=== PATIENT | female | born 1945 | race Caucasian/White ===

== ENCOUNTER → 2016-11-20 | Outpatient (CLI) | payer MEDICARE, BC ==
[~2016-11-20] MED LIST: AMBI5TAB; ASPI325T; BABY81CH; BUPROPION XL; CALCIUM/VITAMIN D; CHONDROITIN SULFATE; DEPA500T2; GLUCOSAMINE; LIPI10TA; LORATADINE; NASONEX; OMEGA 3; SYNT88TA
--- NOTE | 2016-11-20 15:01 | REPMRS ---
Patient History The patient states she had a clinical breast exam in 07/2016. Patient is postmenopausal. No known family history of cancer. Benign excisional biopsy of both breasts. Took estrogen for 10 years. Digital Woman Screen Mammo: November 20, 2016 - Exam #: [id number] Bilateral CC and MLO view(s) were taken. Technologist: Salome Lange, Technologist Prior study comparison: October 15, 2015, bilateral digital mammo screening bilat, performed at [facility]. October 02, 2014, bilateral digital mammo screening bilat, performed at [facility]. FINDINGS: There are scattered fibroglandular densities. There has been no change in the appearance of the mammogram from the prior studies. There is a mild amount of residual fibroglandular tissue which is fairly symmetric. There is no interval development of dominant mass, architectural distortion, or clustered microcalcification suggestive of malignancy. ASSESSMENT: BI-RADS/ACR category 1 mammogram. Negative. Recommendation Routine screening mammogram in 1 year (for women over age 40). This mammogram was interpreted with the aid of an FDA-approved computer-aided dectection system. Electronically Signed By: Krystian Major MD 11/20/16 [id number]
--- NOTE | 2016-11-22 11:09 | DEXA ---
AP SPINE L1 - L4 1.223 0.2 2.0 LT FEMUR TOTAL 0.832 -1.4 0.3 RT FEMUR TOTAL 0.852 -1.2 0.4 TOTAL BODY TOTAL OTHER DUAL FEMUR FRAX* ASSESSMENT Risk factors: Not performed. 10 year probability of fracture Major osteoporotic fracture % Hip fracture % COMMENTS: Normal bone densitometry of the spine. There is low bone density of the hips. The increased density of the spine does represent a significant change. The increased density of the left hip does not represent a significant change. The decreased density of the right hip does not represent significant change. The density of the spine has increased 18.4% since the initial exam on 1998. The spine density has increased 4.3% since the most recent exam on 01/02/2013. The density of the left hip has decreased 5.0% since the initial exam on 1998. The density of the left hip has increased 0.8% since the most recent exam on 05/2012. The density of the right hip has decreased 4.4% since the initial exam on 1998. The density of the right hip has decreased 1.4% since the most recent exam on . FOLLOW-UP: Recommendation for the next bone density exam: 2 years. ANNEMARIE
== END ==
LOC: M WHC 13:53
PROVIDERS: ATTEND Internal Medicine
DX: Z12.31 Encounter for screening mammogram for malignant neoplasm of breast (principal); M81.8 Other osteoporosis without current pathological fracture; Z78.0 Asymptomatic menopausal state
CPT/HCPCS: 77080; G0202

== ENCOUNTER → 2018-08-12 | Outpatient (REF) | payer MEDICARE ==
[2018-08-13 13:11] LABS: PERCENT SATURATION 10.4 % (13.2-45.0)
== END ==
LOC: M LAB REF 12:27
PROVIDERS: ATTEND Internal Medicine
DX: D50.9 Iron deficiency anemia, unspecified (principal)

== ENCOUNTER → 2018-10-16 | Outpatient (CLI) | payer MEDICARE, BC | LOC: M LAB 14:46 | PROVIDERS: ATTEND Internal Medicine Gastroenterology | DX: D50.9 Iron deficiency anemia, unspecified (principal) ==

== ENCOUNTER 2018-12-10 09:22 | Day surgery (SDC) | payer MEDICARE, BC, OTHER ==
[~2018-12-10] VITALS: Ht 152.4 cm; Wt 68.4 kg
[~2018-12-10 09:22] MED LIST changes: +ASPI81TA85 PO; +BENA25CA4 PO; +BUPR150T3 PO; +CALC600T66 PO; +CITA40TA4 PO; +CVS50CAP PO; +EUCR2OIN; +FERR324T2 PO; +LEVO75TA4 PO; +LISI10TA4 PO; +MELA10CA2 PO; +NS 1,000 ML IV ONE; +PANT40TA3 PO; +SIMV20TA2 PO
[2018-12-10] MEDS ORDERED: LIDOCAINE 2% INJ 100 MG/5 ML SDV (FOR ANES.) As Ordered ONE (11:32)
[2018-12-10] MEDS ORDERED: PROPOFOL 200 MG/20 ML VIAL As Ordered ONE ×2 (11:40→12:17)
--- NOTE | 2018-12-10 11:45 | ROOR ---
Patient Name: Rekha Kendrick Procedure Date: 12/10/2018 11:30 AM Date of : 1945 Age: 73 Room: [facility] Gender: Female Note Status: Finalized Procedure: Upper GI endoscopy Indications: Iron deficiency anemia Providers: Jordan WILEY MD Referring MD: Stephenie BENDER MD Requesting Provider: Medicines: Monitored Anesthesia Care Complications: No immediate complications. Procedure: Pre-Anesthesia Assessment: - The heart rate, respiratory rate, oxygen saturations, blood pressure, adequacy of pulmonary ventilation, and response to care were monitored throughout the procedure. The Endoscope was introduced through the mouth, and advanced to the third part of duodenum. The upper GI endoscopy was accomplished without difficulty. The patient tolerated the procedure well. Findings: The esophagus was normal. The stomach was normal. The examined duodenum was normal. Biopsies for histology were taken with a cold forceps in the second portion of the duodenum and in the third portion of the duodenum for evaluation of celiac disease. Impression: - Normal esophagus. - Normal stomach. - Normal examined duodenum. - Biopsies were taken with a cold forceps for evaluation of celiac disease. Recommendation: - Perform a colonoscopy today. Jordan Wiley MD Jordan WILEY MD 12/10/2018 11:45:14 AM Electronically signed by Jordan WILEY MD Number of Addenda: 0 Note Initiated On: 12/10/2018 11:30 AM Estimated Blood Loss: Estimated blood loss: none.
--- NOTE | 2018-12-10 12:22 | ROOR ---
Patient Name: Rekha Kendrick Procedure Date: 12/10/2018 11:32 AM Date of : 1945 Age: 73 Room: [facility] Gender: Female Note Status: Finalized Procedure: Colonoscopy Indications: Iron deficiency anemia Providers: Jordan WILEY MD Referring MD: Stephenie BENDER MD Requesting Provider: Medicines: Monitored Anesthesia Care Complications: No immediate complications. Procedure: Pre-Anesthesia Assessment: - The heart rate, respiratory rate, oxygen saturations, blood pressure, adequacy of pulmonary ventilation, and response to care were monitored throughout the procedure. The Colonoscope was introduced through the anus and advanced to 8 cm into the ileum. The Colonoscope was introduced through the anus and advanced to 8 cm into the ileum. The colonoscopy was somewhat difficult due to a acutely angulated sigmoid loop which i was not able to safely traverse with standard pediatric colonoscope. Successful completion of the procedure was aided by withdrawing the scope and replacing with the pediatric colonoscope (Pedi-Pedi scope). The patient tolerated the procedure well. The quality of the bowel preparation was good. Findings: The perianal and digital rectal examinations were normal. Multiple medium-mouthed diverticula were found in the sigmoid colon. Small Internal Hemorrhoids. The exam was otherwise without abnormality on direct and retroflexion views. Impression: - Moderate diverticulosis in the sigmoid colon. - Small Internal Hemorrhoids. - The examination was otherwise normal on direct and retroflexion views. - No specimens collected. Recommendation: - Continue present medications. Jordan Wiley MD Jordan WILEY MD 12/10/2018 12:21:56 PM Electronically signed by Jordan WILEY MD Number of Addenda: 0 Note Initiated On: 12/10/2018 11:32 AM Estimated Blood Loss: Estimated blood loss: none.
[2018-12-10 12:45] VITALS: BP 126/58
== END 2018-12-10 12:56 | disposition home or self-care (01) ==
LOC: M OPP 09:22
PROVIDERS: ATTEND Internal Medicine Gastroenterology
DX: K57.30 Diverticulosis of large intestine without perforation or abscess without bleeding (principal); K64.8 Other hemorrhoids; D50.9 Iron deficiency anemia, unspecified; Z79.82 Long term (current) use of aspirin; Z79.899 Other long term (current) drug therapy; Z87.891 Personal history of nicotine dependence

== ENCOUNTER 2019-08-02 15:04 | Emergency (ER) | payer MEDICARE, BC, OTHER ==
[~2019-08-02 15:04] MED LIST changes: -NS 1,000 ML IV ONE; -SIMV20TA2 PO; +SIMV20TA22 PO
[2019-08-02] MEDS ORDERED: NS 1,000 ML IV ONE (15:30)
[2019-08-02] MEDS ORDERED: ASPI-264 PO (15:32)
[2019-08-02 15:56] LABS: BASO # 0.1 10^3/uL (0.0-0.2); BASO % 0.5 % (0.0-1.0); EOS # 0.4 10^3/uL (0.0-0.5); EOS % 2.7 % (0.0-3.0); HEMATOCRIT 41.7 % (36.0-47.0); HEMOGLOBIN 13.2 g/dl (12.0-15.5); LYMPH # 1.4 10^3/uL (1.5-5.0); LYMPH % 9.9 % (24.0-44.0); MEAN CORPUSCULAR HEMOGLOBIN 29.5 pg (27.0-33.0); MEAN CORPUSCULAR HGB CONC 31.7 g/dl (32.0-36.5); MEAN CORPUSCULAR VOLUME 93.3 fl (80.0-96.0); MONO % 7.3 % (0.0-5.0); NEUTROPHILS # 11.3 10^3/uL (1.5-8.5); PLATELET COUNT, AUTOMATED 370 10^3/uL (150-450); RED BLOOD COUNT 4.47 10^6/uL (4.00-5.40); WHITE BLOOD COUNT 14.3 10^3/uL (4.0-10.0)
[2019-08-02] MEDS ORDERED: ISOVUE-370 76% 100ML VIAL As Ordered ONE (16:05)
[2019-08-02 16:27] LABS: ALBUMIN 3.9 GM/DL (3.2-5.2); ALT/SGPT 27 U/L (12-78); BILIRUBIN,DIRECT 0.2 MG/DL (0.0-0.2); BILIRUBIN,TOTAL 0.4 MG/DL (0.2-1.0); CK-MB VALUE MASS < 1.0 NG/ML (<3.6); CPK CREATINE PHOSPHOKINASE 60 U/L (26-192); LIPASE 130 U/L (73-393); MB/CK RELATIVE INDEX 1.67 (< OR =4); TOTAL PROTEIN 7.1 GM/DL (6.4-8.2); TROPONIN I < 0.02 NG/ML (< 0.10)
--- NOTE | 2019-08-02 16:27 | REP ---
Clinical: Chest pain and weakness . Comparison: 09/04/2008 . Findings: The mediastinum and cardiac silhouette are stable and within normal limits for portable technique. The lung oliver are clear without acute consolidation, effusion, or pneumothorax. Skeletal structures are intact. Impression: No acute cardiopulmonary process appreciated. Electronically Signed by Julio C Ashraf MD 08/02/2019 04:18 P
--- NOTE | 2019-08-02 16:31 | REP ---
Clinical: Lower abdominal pain. Technique: Axial contrast enhanced images from the lung bases to the pubic symphysis using 100 ml Isovue 370 intravenous contrast material with coronal and sagittal re-formations. Comparison: None. Findings: Lung bases are clear. Visualized heart and pericardium normal. Small hiatal hernia noted. Liver, spleen, pancreas, gallbladder, bilateral adrenal glands and kidneys are normal. The colon is mildly distended and diffusely fluid-filled along with mildly prominent enhancing partially fluid-filled small bowel raising the possibility of underlying enterocolitis. No obstruction or inflammatory changes are otherwise noted. No free air. No ascites or drainable collection/abscess. Pelvis demonstrates normal bladder and evidence of prior hysterectomy. No adenopathy. Abdominal aorta without aneurysm or dissection. Musculoskeletal structures demonstrate age-related degenerative changes. Impression: 1. Possible mild enterocolitis. 2. Small hiatal hernia. Electronically Signed by Julio C Ashraf MD 08/02/2019 04:23 P
[2019-08-02] MEDS ORDERED: ONDANSETRON 4MG/2ML VIAL IV ONE (17:30)
[2019-08-02] MEDS ORDERED: CIPR-249 PO (18:07)
[2019-08-02] MEDS ORDERED: FLAG500T PO (18:08)
[2019-08-02] MEDS ORDERED: ZOFR4TAB16 PO (18:08)
[2019-08-02] MEDS ORDERED: metroNIDAZOLE (FLAGYL) 500 MG TAB PO ONE (18:15)
[2019-08-02] MEDS ORDERED: CIPROFLOXACIN 500MG TABLET PO ONE (18:15)
[2019-08-02 19:03] VITALS: BP 144/71
--- NOTE | 2019-08-02 19:39 | ECGEPIP ---
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
== END 2019-08-02 19:11 | disposition home or self-care (01) ==
LOC: EDBD 15:04 → M ED 15:04
DX: R10.9 Unspecified abdominal pain (principal); K51.918 Ulcerative colitis, unspecified with other complication; R19.7 Diarrhea, unspecified; R11.10 Vomiting, unspecified
CPT/HCPCS: 36415; 71045; 74177; 80047; 80076; 81001; 82550; 82553; 83605; 83690; 84484; 85025; 87040; 87086; 93005; 93041; 99285; J2405; Q9967

== ENCOUNTER → 2019-09-08 | Outpatient (REF) | payer MEDICARE, OTHER ==
[~2019-09-08] MED LIST changes: +ASPI-264 PO; +CIPR-249 PO; +FLAG500T PO; +ZOFR4TAB16 PO
== END ==
LOC: M LAB REF 12:58
PROVIDERS: ATTEND Dermatology
DX: C44.311 Basal cell carcinoma of skin of nose (principal)

== ENCOUNTER 2019-10-08 06:42 | Emergency (ER) | payer MEDICARE, BC, OTHER ==
[~2019-10-08] VITALS: Ht 152.4 cm; Wt 68.2 kg
[2019-10-08] MEDS ORDERED: NS 1,000 ML IV ONE (07:30)
[2019-10-08] MEDS ORDERED: ONDANSETRON 4MG/2ML VIAL IV ONE (07:45)
[2019-10-08 07:47] LABS: BASO # 0.1 10^3/uL (0.0-0.2); BASO % 0.3 % (0.0-1.0); EOS # 0.2 10^3/uL (0.0-0.5); EOS % 0.9 % (0.0-3.0); HEMATOCRIT 43.9 % (36.0-47.0); HEMOGLOBIN 13.9 g/dl (12.0-15.5); LYMPH # 1.4 10^3/uL (1.5-5.0); LYMPH % 7.2 % (24.0-44.0); MEAN CORPUSCULAR HEMOGLOBIN 29.5 pg (27.0-33.0); MEAN CORPUSCULAR HGB CONC 31.7 g/dl (32.0-36.5); MEAN CORPUSCULAR VOLUME 93.2 fl (80.0-96.0); MONO # 1.7 10^3/uL (0.0-0.8); MONO % 8.9 % (0.0-5.0); NEUTROPHILS # 15.4 10^3/uL (1.5-8.5); NEUTROPHILS % 82.2 % (36.0-66.0); PLATELET COUNT, AUTOMATED 389 10^3/uL (150-450); RED BLOOD COUNT 4.71 10^6/uL (4.00-5.40); WHITE BLOOD COUNT 18.8 10^3/uL (4.0-10.0)
[2019-10-08 08:18] LABS: ALBUMIN 3.9 GM/DL (3.2-5.2); BILIRUBIN,DIRECT 0.1 MG/DL (0.0-0.2); BILIRUBIN,TOTAL 0.5 MG/DL (0.2-1.0)
[2019-10-08] MEDS ORDERED: ISOVUE-370 76% 100ML VIAL As Ordered ONE (08:45)
[2019-10-08 10:00] VITALS: BP 128/62
[2019-10-08] MEDS ORDERED: FLAG500T PO (10:09)
[2019-10-08] MEDS ORDERED: CIPR-249 PO (10:09)
--- NOTE | 2019-10-08 10:31 | REP ---
CT ABDOMEN AND PELVIS WITH IV CONTRAST: TECHNIQUE: Axial contrast-enhanced images from the lung bases to the pubic symphysis using 100 mL Isovue-370 intravenous contrast material with multiplanar reformations. COMPARISON: 08/02/2019 The visualized lung bases demonstrate no acute infiltrate. Liver demonstrates a small cyst in the superior left lobe with no other significant abnormality. The gallbladder is grossly unremarkable. Spleen is normal in size with no intrinsic abnormality. The adrenal glands are normal. No pancreatic mass is seen. The right kidney appears normal. The left kidney demonstrates a subcentimeter cyst in the lower pole. There is no hydronephrosis. There is atherosclerotic calcification of the abdominal aorta without aneurysm. There is no adenopathy, free air or free fluid. Diffuse thickening is noted over the colon with relative sparring of the inferior right colon. Findings are consistent with diffuse colitis. No pelvic mass is seen. The patient has had a hysterectomy. Urinary bladder is mildly distended and grossly unremarkable. There are degenerative changes of the spine with anterolisthesis of L5 on S1. This is unchanged. There is a small hiatal hernia. IMPRESSION: Diffuse colitis with relative sparring of the inferior right colon. No free air or free fluid. Electronically Signed by Krystian Major MD 10/09/2019 09:19 A
--- NOTE | 2019-10-09 00:15 | ECGEPIP ---
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
== END 2019-10-08 10:28 | disposition home or self-care (01) ==
LOC: M ED 06:42
DX: K52.9 Noninfective gastroenteritis and colitis, unspecified (principal); I10 Essential (primary) hypertension; D64.9 Anemia, unspecified; Z87.891 Personal history of nicotine dependence; Z79.899 Other long term (current) drug therapy
CPT/HCPCS: 74177; 80047; 80076; 83690; 85025; 87507; 93005; 96361; 96374; 99284; J2405; Q9967

== ENCOUNTER → 2020-01-04 | Outpatient (CLI) | payer MEDICARE, BC, OTHER ==
[~2020-01-04] MED LIST changes: -ASPI81TA85 PO; +ASPI81TA86 PO; +NORT25CA2; +PANT40TA29 PO; -PANT40TA3 PO
== END ==
LOC: M LABSMTC 09:52
PROVIDERS: ATTEND Anesthesiology
DX: Z01.812 Encounter for preprocedural laboratory examination (principal); Z20.828 Contact with and (suspected) exposure to other viral communicable diseases
CPT/HCPCS: C9803; U0003

== ENCOUNTER 2020-01-09 07:56 | Day surgery (SDC) | payer MEDICARE, BC, OTHER ==
[~2020-01-09] VITALS: Ht 152.4 cm; Wt 70.3 kg
[~2020-01-09 07:56] MED LIST changes: +NS 1,000 ML IV ONE
[2020-01-09] MEDS ORDERED: propofoL 500 MG/50 ML VIAL As Ordered ONE (08:15)
[2020-01-09] MEDS ORDERED: PHENYLephrine HCL 500 MCG/5 ML (100MCG/ML) SYRINGE (J2370) As Ordered ONE (08:49)
[2020-01-09] MEDS ORDERED: LIDOCAINE 2% 100MG/5ML SDV (FOR ANES.) As Ordered ONE (08:49)
--- NOTE | 2020-01-09 09:13 | ROOR ---
Patient Name: Rekha Kendrick Procedure Date: 01/09/2020 8:26 AM Date of : 1945 Age: 74 Room: [facility] Gender: Female Note Status: Finalized Procedure: Colonoscopy Indications: Abnormal CT of the GI tract, Follow-up of suspected episode ischemic colitis. constipation/fecal impaction Providers: Jordan WILEY MD Referring MD: Stephenie BENDER MD Requesting Provider: Medicines: Monitored Anesthesia Care Complications: No immediate complications. Procedure: Pre-Anesthesia Assessment: - The heart rate, respiratory rate, oxygen saturations, blood pressure, adequacy of pulmonary ventilation, and response to care were monitored throughout the procedure. The Colonoscope was introduced through the anus and advanced to the terminal ileum, with identification of the appendiceal orifice and IC valve. The colonoscopy was somewhat difficult due to Angulated sigmoid. Successful completion of the procedure was aided by withdrawing the scope and replacing with the 'babyscope' and lavage. The patient tolerated the procedure well. The quality of the bowel preparation was unsatisfactory. Findings: The perianal and digital rectal examinations were normal. Multiple diverticula were found in the sigmoid colon. There was evidence of diverticular spasm. Internal hemorrhoids were found during retroflexion. The hemorrhoids were moderate. The exam was otherwise without abnormality on direct and retroflexion views. Impression: - Preparation of the colon was unsatisfactory. - Moderate diverticulosis in the sigmoid colon. There was evidence of diverticular spasm. - Internal hemorrhoids. - The examination was otherwise normal on direct and retroflexion views. (Colitis is not seen) - No specimens collected. Recommendation: - Repeat colonoscopy in 1 year because the bowel preparation was suboptimal. - Miralax 1 capful (17 grams) in 8 ounces of water PO daily indefinitely. - Use fiber, for example Citrucel, Fibercon, Konsyl or Metamucil. Jordan Wiley MD Jordan WILEY MD 01/09/2020 9:13:12 AM Electronically signed by Jordan WILEY MD Number of Addenda: 0 Note Initiated On: 01/09/2020 8:26 AM Estimated Blood Loss: Estimated blood loss: none.
[2020-01-09 09:28] VITALS: BP 106/59
== END 2020-01-09 09:29 | disposition home or self-care (01) ==
LOC: M OPP 07:56
PROVIDERS: ATTEND Internal Medicine Gastroenterology
DX: K55.9 Vascular disorder of intestine, unspecified (principal); K64.8 Other hemorrhoids; K57.30 Diverticulosis of large intestine without perforation or abscess without bleeding; I10 Essential (primary) hypertension; R93.3 Abnormal findings on diagnostic imaging of other parts of digestive tract; Z79.82 Long term (current) use of aspirin; Z79.899 Other long term (current) drug therapy
CPT/HCPCS: 45378; J2370

== ENCOUNTER → 2020-08-13 | Outpatient (REF) | payer MEDICARE, OTHER ==
[~2020-08-13] MED LIST changes: +BUPR150T12 PO; -BUPR150T3 PO; +LISI10TA22 PO; -LISI10TA4 PO; -NS 1,000 ML IV ONE
[2020-08-13 17:30] LABS: PERCENT SATURATION 17.7 % (13.2-45.0)
== END ==
LOC: M LAB REF 16:51
PROVIDERS: ATTEND Internal Medicine
DX: D50.9 Iron deficiency anemia, unspecified (principal)

== ENCOUNTER 2020-11-06 21:48 | Emergency (ER) | payer MEDICARE, BC, OTHER ==
[~2020-11-06] VITALS: Ht 152.4 cm; Wt 68.2 kg
[2020-11-06 21:49] VITALS: BP 129/62
== END 2020-11-06 22:57 | disposition left against medical advice (07) ==
LOC: M ED 21:48
DX: Z53.21 Procedure and treatment not carried out due to patient leaving prior to being seen by health care provider (principal)

== ENCOUNTER → 2021-07-06 | Outpatient (REF) | payer MEDICARE, OTHER ==
[~2021-07-06] MED LIST changes: -CITA40TA4 PO; +CITA40TA7 PO
[2021-07-07 13:16] LABS: FERRITIN 16 NG/ML (8-252); IRON (FE) 59 UG/DL (50-170); PERCENT SATURATION 16.8 % (13.2-45.0); TOTAL IRON BINDING CAPACITY 351 UG/DL (250-450)
[2021-07-07 13:26] LABS: FOLATE > 24.0 NG/ML; VITAMIN B12 LEVEL 683 PG/ML
== END ==
LOC: M LAB REF 12:35
PROVIDERS: ATTEND Internal Medicine
DX: D64.9 Anemia, unspecified (principal)

== ENCOUNTER 2021-09-14 12:52 | Emergency (ER) | payer MEDICARE, BC, OTHER ==
[~2021-09-14] VITALS: Ht 152.4 cm; Wt 65.9 kg
[2021-09-14 12:52] VITALS: BP 135/70
[2021-09-14] MEDS ORDERED: TRAM50TA2 (12:59)
[2021-09-14] MEDS ORDERED: ZOLO100T PO (12:59)
[2021-09-14] MEDS ORDERED: NORCO, ANEXSIA 5/325MG TABLET (HYDROcodone/ACETAMINOPHEN) PO ONE (14:50)
[2021-09-14] MEDS ORDERED: predniSONE 20 MG TAB PO ONE (14:50)
[2021-09-14] MEDS ORDERED: HYDR-3713 PO (16:00)
[2021-09-14] MEDS ORDERED: PRED20TA PO (16:00)
== END 2021-09-14 16:16 | disposition home or self-care (01) ==
LOC: M ED 12:52
DX: M54.31 Sciatica, right side (principal); I10 Essential (primary) hypertension; E78.5 Hyperlipidemia, unspecified; E03.9 Hypothyroidism, unspecified; K52.9 Noninfective gastroenteritis and colitis, unspecified; Z79.82 Long term (current) use of aspirin; Z79.890 Hormone replacement therapy; Z79.899 Other long term (current) drug therapy
CPT/HCPCS: 80047; 99282; J7512

== ENCOUNTER → 2021-10-06 | Outpatient (CLI) | payer MEDICARE, BC, OTHER ==
[~2021-10-06] MED LIST changes: +HYDR-3713 PO; +PRED20TA PO; +TRAM50TA2; +ZOLO100T PO
== END ==
LOC: M SOG 08:05
PROVIDERS: ATTEND Orthopaedic Surgery
DX: Z47.89 Encounter for other orthopedic aftercare (principal); M16.11 Unilateral primary osteoarthritis, right hip

== ENCOUNTER → 2021-10-19 | Outpatient (REF) | payer MEDICARE, OTHER | LOC: M LAB REF 12:22 | PROVIDERS: ATTEND Internal Medicine | DX: N39.0 Urinary tract infection, site not specified (principal) ==

== ENCOUNTER → 2022-03-01 | Outpatient (CLI) | payer MEDICARE, BC, OTHER | LOC: M PLAIMG 08:39 | PROVIDERS: ATTEND Student in an Organized Health Care Education/Training Program | DX: I67.1 Cerebral aneurysm, nonruptured (principal) ==

== ENCOUNTER → 2022-03-07 | Outpatient (REF) | payer MEDICARE, OTHER, BC | LOC: M LAB REF 13:07 | PROVIDERS: ATTEND Internal Medicine | DX: N18.9 Chronic kidney disease, unspecified (principal); D63.1 Anemia in chronic kidney disease ==

== ENCOUNTER → 2022-03-08 | Outpatient (CLI) | payer MEDICARE, BC, OTHER | LOC: M WHC 12:58 | PROVIDERS: ATTEND Internal Medicine | DX: N63.20 Unspecified lump in the left breast, unspecified quadrant (principal); N64.4 Mastodynia | CPT/HCPCS: 77066; G0279 ==

== ENCOUNTER 2022-03-19 19:54 | Emergency (ER) | payer MEDICARE, BC, OTHER ==
[~2022-03-19] VITALS: Ht 152.4 cm; Wt 65.9 kg
[2022-03-19 20:36] LABS: BASO # 0.1 10^3/uL (0.0-0.2); BASO % 0.5 % (0.0-1.0); EOS # 0.4 10^3/uL (0.0-0.5); EOS % 3.2 % (0.0-3.0); HEMATOCRIT 29.8 % (36.0-47.0); HEMOGLOBIN 9.3 g/dl (12.0-15.5); LYMPH # 1.7 10^3/uL (1.5-5.0); LYMPH % 12.8 % (24.0-44.0); MEAN CORPUSCULAR HEMOGLOBIN 28.9 pg (27.0-33.0); MEAN CORPUSCULAR HGB CONC 31.2 g/dl (32.0-36.5); MEAN CORPUSCULAR VOLUME 92.5 fl (80.0-96.0); MONO # 1.4 10^3/uL (0.0-0.8); MONO % 10.6 % (2.0-8.0); NEUTROPHILS # 9.6 10^3/uL (1.5-8.5); NEUTROPHILS % 72.4 % (36.0-66.0); PLATELET COUNT, AUTOMATED 364 10^3/uL (150-450); RED BLOOD COUNT 3.22 10^6/uL (4.00-5.40); WHITE BLOOD COUNT 13.2 10^3/uL (4.0-10.0)
[2022-03-19 21:06] LABS: CK-MB VALUE MASS < 1.0 NG/ML (<3.6)
[2022-03-19 21:07] LABS: BLOOD UREA NITROGEN 34 MG/DL (9-23); CALCIUM LEVEL 9.1 MG/DL (8.3-10.6); CARBON DIOXIDE LEVEL 24 MMOL/L (20-31); CHLORIDE LEVEL 107 MMOL/L (98-107); CPK CREATINE PHOSPHOKINASE 57 U/L (34-145); CREATININE FOR GFR 1.24 MG/DL (0.55-1.30); GLOMERULAR FILTRATION RATE 44.5 (>39); GLUCOSE, FASTING 99 MG/DL (74-106); MB/CK RELATIVE INDEX 1.75 (< OR =4); POTASSIUM SERUM 5.2 MMOL/L (3.5-5.1); SODIUM LEVEL 139 MMOL/L (136-145)
[2022-03-19] MEDS ORDERED: GI COCKTAIL 50ML BTL(HYOSCYAMINE/MAALOX/LIDOCAINE VISCOUS)(1:3:1) PO ONE (21:10)
[2022-03-19] MEDS ORDERED: ISOVUE-370 76% 100ML VIAL As Ordered ONE ×2 (21:13→21:26)
[2022-03-19] MEDS ORDERED: NS 500 ML IV ONE (21:15)
[2022-03-19 22:25] LABS: CK-MB VALUE MASS < 1.0 NG/ML (<3.6)
[2022-03-19 22:27] LABS: CPK CREATINE PHOSPHOKINASE 54 U/L (34-145); MB/CK RELATIVE INDEX 1.85 (< OR =4)
[2022-03-19 22:43] VITALS: BP 136/61
== END 2022-03-20 00:05 | disposition home or self-care (01) ==
LOC: M ED 19:54
DX: R07.9 Chest pain, unspecified (principal); I10 Essential (primary) hypertension; E78.5 Hyperlipidemia, unspecified; F41.9 Anxiety disorder, unspecified; F32.A Depression, unspecified; Z87.891 Personal history of nicotine dependence; F10.10 Alcohol abuse, uncomplicated; Z79.82 Long term (current) use of aspirin; Z79.899 Other long term (current) drug therapy; Z79.891 Long term (current) use of opiate analgesic; Z79.811 Long term (current) use of aromatase inhibitors
CPT/HCPCS: 71045; 71275; 80048; 82550; 82553; 84484; 85025; 93005; 93041; 94760; 96360; 99284; Q9967

== ENCOUNTER → 2022-04-17 | Outpatient (REF) | payer MEDICARE, BC, OTHER ==
[2022-04-18 12:52] LABS: PERCENT SATURATION 23.4 % (13.2-45.0)
[2022-04-18 12:57] LABS: FERRITIN 13.4 NG/ML (7.3-270.7)
== END ==
LOC: M LAB REF 12:11
PROVIDERS: ATTEND Internal Medicine
DX: D50.9 Iron deficiency anemia, unspecified (principal)

== ENCOUNTER → 2022-08-10 | Outpatient (CLI) | payer MEDICARE, BC, OTHER | LOC: M PLAIMG 10:05 | PROVIDERS: ATTEND Internal Medicine | DX: M19.011 Primary osteoarthritis, right shoulder (principal) ==

== ENCOUNTER → 2023-03-29 | Outpatient (CLI) | payer MEDICARE, BC, OTHER ==
[~2023-03-29] MED LIST changes: +ONDA4TAB6 PO; +SENN8.6T58 PO; +XANA0.5T PO
== END ==
LOC: M WHC 10:53
PROVIDERS: ATTEND Internal Medicine
DX: Z12.31 Encounter for screening mammogram for malignant neoplasm of breast (principal); R92.323 Mammographic fibroglandular density, bilateral breasts

== ENCOUNTER → 2023-05-04 | Outpatient (CLI) | payer MEDICARE, BC, OTHER | LOC: M PLAIMG 09:31 | PROVIDERS: ATTEND Student in an Organized Health Care Education/Training Program | DX: I67.1 Cerebral aneurysm, nonruptured (principal) ==

== ENCOUNTER → 2023-09-03 | Outpatient (REF) | payer MEDICARE, OTHER ==
[~2023-09-03] MED LIST changes: +ONDA-282 PO; -ONDA4TAB6 PO
== END ==
LOC: M LAB REF 18:24
PROVIDERS: ATTEND Internal Medicine
DX: N18.31 Chronic kidney disease, stage 3a (principal); D50.9 Iron deficiency anemia, unspecified

== ENCOUNTER → 2023-11-29 | Outpatient (REF) | payer MEDICARE, OTHER | LOC: M LAB REF 11:22 | PROVIDERS: ATTEND Internal Medicine | DX: D50.9 Iron deficiency anemia, unspecified (principal) ==

== ENCOUNTER → 2024-03-17 | Outpatient (CLI) | payer MEDICARE, OTHER | LOC: M SOG 07:58 | PROVIDERS: ATTEND Physician Assistant | DX: S82.64XA Nondisplaced fracture of lateral malleolus of right fibula, initial encounter for closed fracture (principal); W18.30XA Fall on same level, unspecified, initial encounter; Y92.009 Unspecified place in unspecified non-institutional (private) residence as the place of occurrence of the external cause ==

== ENCOUNTER → 2024-04-11 | Outpatient (REF) | payer MEDICARE, OTHER | LOC: M LAB REF 12:37 | PROVIDERS: ATTEND Internal Medicine | DX: D50.9 Iron deficiency anemia, unspecified (principal) ==

== ENCOUNTER → 2024-04-18 | Outpatient (CLI) | payer MEDICARE, OTHER | LOC: M SOG 07:55 | PROVIDERS: ATTEND Physician Assistant | DX: S82.64XD Nondisplaced fracture of lateral malleolus of right fibula, subsequent encounter for closed fracture with routine healing (principal) ==

== ENCOUNTER → 2024-05-01 | Outpatient (CLI) | payer MEDICARE, BC | LOC: M WHC 10:25 | PROVIDERS: ATTEND Internal Medicine | DX: Z12.31 Encounter for screening mammogram for malignant neoplasm of breast (principal); Z13.820 Encounter for screening for osteoporosis; M85.89 Other specified disorders of bone density and structure, multiple sites; R92.323 Mammographic fibroglandular density, bilateral breasts; R92.1 Mammographic calcification found on diagnostic imaging of breast ==

== ENCOUNTER 2024-10-24 15:27 | Outpatient (CLI) | payer MEDICARE, BC ==
[~2024-10-24] VITALS: Ht 152.4 cm; Wt 66.0 kg
[~2024-10-24 15:27] MED LIST changes: +CVS10CAP8 PO; -MELA10CA2 PO
[2024-10-24] MEDS: ZOLEDRONIC ACID 5 MG in IV 1 EA IV ONE (15:45)
[2024-10-24 15:48] VITALS: BP 113/56; O2SAT 98
[2024-10-24 16:55] VITALS: BP 118/57; O2SAT 92
== END 2024-10-24 16:55 ==
LOC: M INFU 15:27
PROVIDERS: ATTEND Internal Medicine
DX: M89.9 Disorder of bone, unspecified (principal); D50.9 Iron deficiency anemia, unspecified
CPT/HCPCS: 96413; J3489

== ENCOUNTER 2024-10-31 07:46 | Emergency (ER) | payer MEDICARE, BC ==
[~2024-10-31] VITALS: Ht 152.4 cm; Wt 64.6 kg
[~2024-10-31 07:46] MED LIST changes: -NORT25CA2; +NORT25CA2 PO
[2024-10-31 08:26] LABS: BASO # 0.1 10^3/uL (0.0-0.2); BASO % 0.4 % (0.0-1.0); EOS # 0.5 10^3/uL (0.0-0.5); EOS % 4.6 % (0.0-3.0); LYMPH # 1.6 10^3/uL (1.5-5.0); LYMPH % 13.9 % (24.0-44.0); MONO # 1.0 10^3/uL (0.0-0.8); MONO % 8.5 % (2.0-8.0); NEUTROPHILS # 8.1 10^3/uL (1.5-8.5); NEUTROPHILS % 72.2 % (36.0-66.0); PLATELET COUNT, AUTOMATED 381 10^3/uL (150-450)
[2024-10-31] MEDS ORDERED: ISOVUE-370 76% 100 ML VIAL As Ordered ONE (08:34)
[2024-10-31] MEDS: ACETAMINOPHEN 325 MG TAB PO ONE (08:35)
[2024-10-31 08:42] LABS: CK-MB VALUE MASS 1.6 NG/ML (<3.6)
[2024-10-31 08:44] LABS: CALCIUM LEVEL 10.1 MG/DL (8.3-10.6); CARBON DIOXIDE LEVEL 27 MMOL/L (20-31); CHLORIDE LEVEL 104 MMOL/L (98-107); CREATININE FOR GFR 1.46 MG/DL (0.55-1.30); GLOMERULAR FILTRATION RATE 35.9 (>32); POTASSIUM SERUM 4.2 MMOL/L (3.5-5.1); SODIUM LEVEL 143 MMOL/L (136-145)
[2024-10-31 08:48] LABS: CPK CREATINE PHOSPHOKINASE 76 U/L (34-145); MB/CK RELATIVE INDEX 2.10 (< OR =4)
[2024-10-31] MEDS ORDERED: ASPI81TA26 PO (08:58)
[2024-10-31] MEDS ORDERED: LISI5TAB11 PO (08:58)
[2024-10-31] MEDS ORDERED: FERR32TA PO (08:58)
[2024-10-31] MEDS ORDERED: CALC1TAB42 PO (08:58)
[2024-10-31] MEDS ORDERED: LORA-930 PO (08:59)
[2024-10-31] MEDS ORDERED: HOME MED LIST COMPLETE! XX SCH (09:00)
[2024-10-31 09:55] LABS: CK-MB VALUE MASS 1.3 NG/ML (<3.6)
[2024-10-31 09:56] LABS: CPK CREATINE PHOSPHOKINASE 63 U/L (34-145); MB/CK RELATIVE INDEX 2.06 (< OR =4)
[2024-10-31 10:21] VITALS: BP 120/58; TEMP 98.3; O2SAT 93
== END 2024-10-31 10:28 | disposition home or self-care (01) ==
LOC: M ED 07:46
DX: R07.89 Other chest pain (principal); R51.9 Headache, unspecified; R91.8 Other nonspecific abnormal finding of lung field; Z86.79 Personal history of other diseases of the circulatory system; Z87.19 Personal history of other diseases of the digestive system; I12.9 Hypertensive chronic kidney disease with stage 1 through stage 4 chronic kidney disease, or unspecified chronic kidney disease; E78.5 Hyperlipidemia, unspecified; Z85.828 Personal history of other malignant neoplasm of skin; Z87.891 Personal history of nicotine dependence; Z79.82 Long term (current) use of aspirin; Z79.899 Other long term (current) drug therapy
CPT/HCPCS: 70450; 70496; 70498; 71045; 71275; 80047; 80048; 82550; 82553; 84484; 85025; 93005; 93041; 94760; 99285; Q9967

== ENCOUNTER → 2024-12-04 | Outpatient (REF) | payer MEDICARE, OTHER ==
[~2024-12-04] MED LIST changes: +ASPI81TA26 PO; +CALC1TAB42 PO; +FERR32TA PO; +LISI5TAB11 PO; +LORA-930 PO
== END ==
LOC: M LAB REF 12:25
PROVIDERS: ATTEND Internal Medicine
DX: D50.9 Iron deficiency anemia, unspecified (principal)

== ENCOUNTER → 2025-01-01 | Outpatient (CLI) | payer MEDICARE, BC | LOC: M WUC 11:47 | PROVIDERS: ATTEND Internal Medicine | DX: M51.360 Other intervertebral disc degeneration, lumbar region with discogenic back pain only (principal); M25.78 Osteophyte, vertebrae ==

== ENCOUNTER → 2025-01-09 | Outpatient (REF) | payer MEDICARE, OTHER | LOC: M LAB REF 11:55 | PROVIDERS: ATTEND Internal Medicine | DX: D50.9 Iron deficiency anemia, unspecified (principal) ==